=== PATIENT | male | born 1960 | race Caucasian/White ===

== ENCOUNTER 2018-04-30 10:26 | Emergency (ER) | payer OTHER, BC, SELFPAY ==
[2018-04-30 10:28] VITALS: BP 151/92; PULSE 76; RESP 16; TEMP 36.4; O2SAT 98; BMI 22.9
--- NOTE | 2018-04-30 10:48 | RAD_ITS ---
STUDY: X-RAY - RIGHT WRIST REASON FOR EXAM: Male, 57 years old. Pain to wrist joint, posterior surface. TECHNIQUE: 3 view(s) of the wrist were obtained. COMPARISON: None. FINDINGS: Normal visualized distal radius and ulna. Normal radiocarpal articulation. Normal distal radioulnar articulation. Normal carpal bones. Normal carpal articulations. Normal carpometacarpal articulation of the thumb. Normal second through fifth carpometacarpal articulations. Normal visualized metacarpal bones. The soft tissue structures are unremarkable. RAD/Wrist min 3 Views IMPRESSION: Normal x-ray examination of the wrist. Electronically Signed: Kirill Chiang MD at 11:16 EST , Service support ,
[2018-04-30] MEDS: Acetaminophen 500 MG Tablet 1000 MG PO (11:09)
--- NOTE | 2018-04-30 11:32 | ED.VISSUMM ---
- ER Visit Summary Date of Service: 04/30/18 Chief Complaint: Right wrist pain History of Present Illness: The patient is a 57 M who has right wrist pain. He slipped on wet concrete and fell onto his right hand. He has wrist pain. It is worse with movement. He had previous fracture about 10 years ago. He took Aleve this morning for regular aches and pains. Physical Examination: Vital signs are reviewed. Right wrist exam is tenderness of the distal radius. He has 2+ radial pulses. Decreased range of motion secondary to pain. Test Results: Right wrist x-ray reveals no fractures Emergency Department Course and Treatment: Patient was given Tylenol here. He will be given a Velcro prefabricated wrist splint. He will take NSAIDs at home. Worker's Compensation forms are filled out Treatment Plan: [] Disposition: Discharge Impression: Right wrist pain This note was generated with [employer] dictation software. It may contain incorrect words, spelling, and punctuation that were not noted in review of the chart prior to signing ED Disposition - Plan for ED Patient: Chief Complaint: Upper Extremity Injury Referrals: Nano Sparrow NP-C [Primary Care Provider] -
--- NOTE | 2018-04-30 11:33 | ED.DEP ---
ED Disposition - Plan for ED Patient: Disposition: Home or Assisted Living Chief Complaint: Upper Extremity Injury Instructions: ED Sprain Wrist Referrals: Nano Sparrow NP-C [Primary Care Provider] - [facility], [place] [GROUP OF PHYSICIANS] -
[2018-04-30 12:03] VITALS: BP 145/85; PULSE 68; RESP 18; O2SAT 99
== END 2018-04-30 12:04 | disposition home or self-care (01) ==
PROVIDERS: Emergency Provider Emergency Medicine; Family Provider Nurse Practitioner Family; PCP Nurse Practitioner Family
DX: S63.501A Unspecified sprain of right wrist, initial encounter (principal); W01.0XXA Fall on same level from slipping, tripping and stumbling without subsequent striking against object, initial encounter; Y93.9 Activity, unspecified; Y92.9 Unspecified place or not applicable; Y99.9 Unspecified external cause status
CPT/HCPCS: 73110; 99282

== ENCOUNTER → 2018-05-30 06:29 | Outpatient (CLI) | payer OTHER, SELFPAY, BC ==
[2018-04-30 10:28] VITALS: BMI 22.9
--- NOTE | 2018-05-30 07:00 | MRI_ITS ---
STUDY: MRI RIGHT WRIST WITHOUT CONTRAST REASON FOR EXAM: Right wrist sprain from a fall 04/30/2018, concern for bone injury, tendon injury. TECHNIQUE: Standardized fat and water weighted pulse sequences were obtained in all 3 orthogonal planes. COMPARISON: Radiographs 04/30/2018. FINDINGS: There is a nondisplaced fracture of the distal radius with intra-articular extension (T1 coronal images 7-12). There is a nondisplaced fracture of the ulnar styloid process (T1 coronal image 12). Normal distal radioulnar articulation (DRUJ). Normal triangular fibrocartilaginous complex (TFCC). There are mild bone contusions of the proximal pole of the scaphoid and radial aspect of the lunate (inversion recovery coronal images 9-12). There is a bone contusion of the dorsal hamate (inversion recovery coronal images 7, 8). Normal radiocarpal, intercarpal and midcarpal articulations. Normal pisotriquetral articulation. There is a mild sprain of the scapholunate ligament (inversion recovery coronal image 10). Normal extensor tendons. Normal flexor tendons. Normal carpal tunnel with a normal median nerve. Normal carpometacarpal articulation of the thumb. Normal second through fifth carpometacarpal articulations. There is a small cyst in the fifth metacarpal head. There is no demonstrated soft tissue abnormality. MRI/Upper Ext Joint Only(Routine) IMPRESSION: Nondisplaced fracture of the distal radius. Nondisplaced fracture of the ulnar styloid process. Bone contusions of the scaphoid, lunate and hamate. Mild sprain of the scapholunate ligament. No demonstrated tendon injury. Electronically Signed: Dayne Bucio MD at 14:36 EST Tel , Service support ,
== END ==
PROVIDERS: Family Provider Nurse Practitioner Family; PCP Nurse Practitioner Family; Referring Provider Family Medicine; Visit Provider Family Medicine
DX: S52.572A Other intraarticular fracture of lower end of left radius, initial encounter for closed fracture (principal); S52.614A Nondisplaced fracture of right ulna styloid process, initial encounter for closed fracture; W19.XXXA Unspecified fall, initial encounter; Y93.9 Activity, unspecified; Y92.9 Unspecified place or not applicable; Y99.9 Unspecified external cause status
CPT/HCPCS: 73221

== ENCOUNTER → 2019-01-04 16:11 | Outpatient (CLI) | payer BC, SELFPAY ==
--- NOTE | 2019-01-04 16:25 | VDLE_ITS ---
Reason For Study: Pain LLE Procedure LEFT Exam performed in department. GSV is normal. A preliminary report was called and/or faxed CFV is compressible, spontaneous, phasic, to Favian. competent, and demonstrates normal augmentation. FV is compressible, spontaneous, phasic, competent and demonstrates normal augmentation. POP V is compressible, spontaneous, phasic, competent and demonstrates normal augmentation. T/P Trunk is compressible. PTV is compressible. LT PerV is compressible. Interpretation Summary Deep veins of the left lower extremity are patent and compressible segmentally. There is no evidence of left lower extremity deep vein thrombosis. Valvular competence appears intact within the proximal deep venous system on the left . The left great saphenous vein appears patent and compressible segmentally. Ordering Physician: Kamran Ballesteros Referring Physician: Nano Sparrow Performed By: Ana Estrada RVT
== END ==
PROVIDERS: Family Provider Nurse Practitioner Family; PCP Nurse Practitioner Family; Referring Provider Physician Assistant; Visit Provider Physician Assistant
DX: M79.662 Pain in left lower leg (principal)
CPT/HCPCS: 93971

== ENCOUNTER → 2022-05-27 | Outpatient (CLI) | payer BC, SELFPAY ==
--- NOTE | 2022-05-27 08:03 | ECHOD_ITS ---
Reason For Study: Evaluate MV Procedure This was a 2D Doppler, Color Flow transthoracic echocardiogram. Exam performed in department. Left Ventricle Normal LV size. Left ventricular systolic function is normal. The estimated ejection fraction is 55 %. Stage 1 diastolic dysfunction. No regional wall motion abnormalities noted. Right Ventricle Normal RV size. Normal systolic function. Atria Normal left atrium. Normal right atrium. Mitral Valve Bileaflet diffuse mitral valve thickening. Mild (1+) eccentric mitral valve insufficiency. Tricuspid Valve Normal tricuspid valve. Mild (1+) tricuspid valve insufficiency. Aortic Valve Normal aortic valve. Trisinus/trileaflet aortic valve. Pulmonic Valve Normal pulmonic valve. Great Vessels Normal aortic root. The pulmonary artery is normal size. Normal inferior vena cava. Pericardium/Pleural No pericardial effusion. MMode/2D Measurements & Calculations LVIDd: 4.9 cm IVSd: 1.0 cm LA dimension: 3.6 cm LVIDs: 3.7 cm LVPWd: 0.88 cm RVDd: 3.7 cm FS: 24.4 % LAV(MOD-bp): 32.7 ml LA A4 area: 14.2 cm2 RA A4 area: 16.1 cm2 LAV(MOD-bp) Indexed: 15.9 ml/m2 LAV(MOD-sp2): 32.7 ml LAV(MOD-sp4): 33.5 ml Time Measurements MV dec time: 0.16 sec Doppler Measurements & Calculations MV E max calixto: 58.5 cm/sec Lat Peak E' Calixto: 8.0 cm/sec Med Peak E' Calixto: 8.6 cm/sec MV A max calixto: 62.2 cm/sec E/E' lat: 7.3 E/E' med: 6.8 MV E/A: 0.94 MV V2 max: 74.6 cm/sec MV P1/2t max calixto: 67.6 cm/sec Ao V2 max: 118.9 cm/sec MV max P.2 mmHg MV P1/2t: 59.3 msec Ao max P.7 mmHg MV V2 mean: 41.5 cm/sec MV dec slope: 333.8 cm/sec2 Ao V2 mean: 77.1 cm/sec MV mean P.81 mmHg MVA(P1/2t): 3.7 cm2 Ao mean P.8 mmHg MV V2 VTI: 24.8 cm Ao V2 VTI: 24.6 cm AV (velocity ratio): 0.70 LV V1 max: 84.0 cm/sec MR max calixto: 594.5 cm/sec PA V2 max: 139.5 cm/sec LV V1 max P.8 mmHg MR max P.4 mmHg LV V1 mean P.5 mmHg LV V1 mean: 57.6 cm/sec LV V1 VTI: 17.3 cm ECHO/Echo Complete Interpretation Summary Normal LV size. Left ventricular systolic function is normal. The estimated ejection fraction is 55 %. Mild (1+) eccentric mitral valve insufficiency. Bileaflet diffuse mitral valve thickening. Stage 1 diastolic dysfunction. Ordering Physician: Reji Yeboah Referring Physician: Nano Sparrow Performed By: Azar Castaneda RCS
== END | disposition home or self-care (01) ==
LOC: CVS 07:55
PROVIDERS: PCP Nurse Practitioner Family; Referring Provider Nurse Practitioner Family; Visit Provider Nurse Practitioner Family
DX: I34.0 Nonrheumatic mitral (valve) insufficiency (principal); I49.3 Ventricular premature depolarization
CPT/HCPCS: 93306

== ENCOUNTER 2023-08-24 17:30 | Outpatient (RCR) | payer SELFPAY | END 2023-08-29 23:59 | LOC: NS 17:30 | PROVIDERS: PCP Nurse Practitioner Family | DX: Z71.3 Dietary counseling and surveillance (principal) ==

== ENCOUNTER → 2024-08-19 | Outpatient (CLI) | payer MEDICARE, BC, SELFPAY ==
--- NOTE | 2024-08-19 12:46 | VDLE_ITS ---
Reason For Study Reason For Study: LLE Swelling RIGHT LEFT CFV is compressible, spontaneous, phasic, competent GSV is normal. and demonstrates normal augmentation. CFV is compressible, spontaneous, phasic, competent, Procedure and demonstrates normal augmentation. This is a venous duplex using B-mode, color flow and FV is compressible, spontaneous, phasic, competent spectral Doppler. and demonstrates normal augmentation. Exam performed in department. POP V is compressible, spontaneous, phasic, competent The exam was diagnostic. and demonstrates normal augmentation. A preliminary report was called and/or faxed to T/P Trunk is compressible. [facility]. PTV is compressible. LT PerV is compressible. VL/Venous Duplex US, Unilateral Interpretation Summary Deep veins of the left lower extremity are patent and compressible segmentally. There is no evidence of left lower extremity deep vein thrombosis. Valvular competence appears intact within the p roximal deep venous system on the left . The left great saphenous vein appears patent and compressible segmentally. The right common femoral vein is patent and compressible . Ordering Physician: Connie Luciano Referring Physician: Nano Sparrow Performed By: Nigel Kruger RVT
== END | disposition home or self-care (01) ==
PROVIDERS: PCP Nurse Practitioner Family
DX: R22.42 Localized swelling, mass and lump, left lower limb (principal)
CPT/HCPCS: 93971